=== PATIENT | male | born 1985 | race American Indian/Alaskan Native ===

== ENCOUNTER 2017-06-02 22:06 | Emergency (ER) | payer SELFPAY ==
[2017-06-02] MEDS ORDERED: TYLENOL ONE (22:38)
[2017-06-02] MEDS ORDERED: TYLENOL PO ONE (22:45)
[2017-06-03 01:43] VITALS: BP 133/87
--- NOTE | 2017-06-03 02:39 | Emergency Department Report ---
Upper Extremity - HPI Chief Complaint: Pain General Stated Complaint: TOOTHACHE, JAW PAIN, BROKEN WRIST Time Seen by Provider: 06/03/17 02:01 Upper Extremity: Left Hand (left hand pain 10 days after striking a punching bag but struck the door instead. ) Occurred When: >5 Days (10 days) Mechanism: Hit with Object Severity: mild (4/10) Symptoms: Yes Pain with Movement (to left hand), Yes Limited Range of Movement ( left hand), Yes Swelling (left hand), Yes Bruising/Ecchymosis (left hand), No Deformity, No Numbness, No Weakness, No Laceration or Abrasion Other History: Patient he reports that he is having left hand pain after trying to hit a punching bag and he hit a metal door instead. He reports pain is 4/ 10. Denies any numbness or tingling. Pain is achy and throbbing. Denies any loss of sensation to his left hand. Denies any radiation of pain from left hand. Patient is also complaining of right facial swelling 1 week with right upper toothache 4/10. Patient said he has a bad tooth to his right upper back area and he does not have a dentist. He said he took Tylenol but it doesn't help. Denies any fever or chills, denies any cough, denies any sore throat or drooling. Denies any difficulty swallowing. Patient reports that it hurts is right facial area when he talks. He reports it's difficult to eat because it hurts. Blood pressure is 144/104 and he denies any history of high blood pressure or any medical problems. ED Review of Systems ROS: Stated complaint: TOOTHACHE, JAW PAIN, BROKEN WRIST Other details as noted in HPI Comment: All other systems reviewed and negative Constitutional: denies: chills, fever ENT: dental pain, other (right facial swelling). denies: ear pain, throat pain , congestion Respiratory: no symptoms reported Cardiovascular: denies: chest pain, palpitations, edema, syncope Gastrointestinal: denies: abdominal pain, nausea, vomiting Musculoskeletal: joint swelling, arthralgia. denies: back pain, myalgia Skin: denies: rash Neurological: denies: headache, weakness, numbness, paresthesias, confusion, abnormal gait, vertigo ED Past Medical Hx - Past Medical History Previous Medical History?: No - Surgical History Past Surgical History?: No - Family History Family history: no significant - Social History Smoking Status: Current Every Day Smoker Substance Use Type: Alcohol Other Social History: Patient is single - Medications Home Medications: Home Medications Medication Instructions Recorded Confirmed Last Taken Type Acetaminophen/Codeine [Tylenol 1 tab PO Q6H PRN #15 tab 06/03/17 Unknown Rx /Codeine # 3 tab] Clindamycin [Clindamycin CAP] 300 mg PO Q8H #30 cap 06/03/17 Unknown Rx Ibuprofen [Motrin] 600 mg PO Q8H PRN #15 tablet 06/03/17 Unknown Rx Upper Extremity Exam - Exam General: Vital signs noted. No distress. Alert and acting appropriately. This is a 31-year-old male well-nourished well-developed in no acute distress. Head and Torso: No HEENT Abnormality (normal examination except patient with right facial swelling tender to palpate. Noted cellulitic area around tooth #1 and 2. No erythematous facial swelling. Tender to palpate right facial area. Patient is able to speak clearly. He is able to open his mouth but he says it' s painful to his right face. Multiple dental caries noted with gingivitis), No Neck Tenderness (supple, full range of motion, no C-spine tenderness. no adenopathy), No Chest/Lungs Abnormality (clear to auscultation bilaterally, no rhonchi wheezes or rales), No Abdominal Tenderness (nontender to palpation in all quadrants, normal bowel sounds.), No Back Tenderness (no vertebral or paraspinal tenderness. Full range of motion.) Shoulder Exam: Yes Normal Range of Motion in Shoulder, No Shoulder Tenderness, No Clavicle Tenderness, No Shoulder Deformity, No AC Joint Tenderness Arm Exam: No Arm/Humerus Tenderness, No Arm Deformity Elbow: Yes Normal Range of Motion in Elbow, No Elbow Tenderness, No Elbow Deformity Forearm: No Forearm Tenderness, No Forearm Deformity, No Pain with Pronation, No Pain with Supination Wrist: Yes Normal ROM in Wrist, No Wrist Tenderness, No Wrist Deformity, No Snuffbox Tenderness, No Pain with Axial Thumb Compression Hand: Yes Hand Tenderness (proximal metacarpal bone area at fourth and fifth), Yes Normal ROM in Digit(s) (patient with full range of motion to hand and wrist and all fingers. He said his hurts to the dorsal aspect of his hand when he closes his fist), No Hand Deformity, No Digit Tenderness, No Digit(s) Deformity , No Tendon Dysfunction CMS Exam: Yes Normal Distal Pulses, Yes Normal Capillary Refill, Yes Normal Distal Sensation, No Broken Skin (mild swelling, with bruising to proximal fourth and fifth metacarpal bone area) ED Course Vital Signs 06/02/17 06/03/17 22:35 01:41 Temperature 98.5 F Pulse Rate 105 H 91 H Respiratory 20 18 Rate Blood Pressure 144/104 133/87 [Right] O2 Sat by Pulse 100 100 Oximetry - Reevaluation(s) Reevaluation #1: 06/03/17 04:06 Patient given Percocet 5/325 2 tablets emergency room to manage pain. Prior to that he was given Tylenol 650 mg in triage area. After Percocet, patient was released with pain. - Orthopedic Splinting/Casting Injury #2 Side: left Upper Extremity Injury Location: hand Upper Extremity Immobilizer: sling/shoulder immobilize, ulnar gutter Additional Comments: Patient with good color, movement, temperature and sensation to fingers of left hand after splint placement. Neurovascular intact post splint placement ED Medical Decision Making - Radiology Data Radiology results: report reviewed X-ray of left hand reveals traumatic fractures of the proximal fourth and fifth metacarpals. Periosteal reaction is noted, suggested healing fracture. Patient states that he injured his left hand 10 days ago - Medical Decision Making ED course: Patient presents to emergency room with complaint of left hand pain and swelling and limited range of motion he was found to have fracture of proximal fourth and fifth metacarpal bone. Patient has no neurovascular compromise .ulnar gutter splint placed and he is neurovascular intact after splint placement. Patient also complaining of right facial swelling with toothache to his right upper tooth 1 week and he was found to have oral cellulitis, gingivitis and multiple dental caries. Patient was given clindamycin 600 mg IM in emergency room along with Percocet 5/325 mg by mouth. I discussed with patient his diagnosis and treatment plan and I told him that he will need to follow up with orthopedic doctor for fracture of his hand and to dentist to manage infection in his mouth. Procedure: OCL ulnar gutter splint placed to left hand fracture. Assessment/plan 1: Toothache 2: Oral cellulitis 3: Dental caries 4: Gingivitis 5: Fracture, fourth and fifth metacarpal bone [id number] report suggests areas healing. Patient 10 days out with injury 6. Arthralgia right hand Referred to Dr. Harmon orthopedic doctor for fracture of his fourth and fifth metacarpal bone Patient referred to [facility] for oral cellulitis, dental caries, gingivitis. Vital signs had stabilized Patient given prescription for Tylenol 3 and Motrin, clindamycin for oral cellulitis and toothache and also to manage pain Critical care attestation.: If time is entered above; I have spent that time in minutes in the direct care of this critically ill patient, excluding procedure time. ED Disposition Clinical Impression: Cellulitis of oral soft tissues, Toothache, Arthralgia of hand, left, Fracture of metacarpal bone of left hand, Dental caries, Gingivitis Disposition: TO HOME OR SELFCARE Is pt being admited?: No Does the pt Need Aspirin: No Condition: Stable Instructions: Hand Fracture (ED), Boxer Fracture (ED), Splint Care (ED), Arthralgia (ED), Dental Caries (ED), Dental Abscess (ED), Toothache (ED), Gingivitis (ED) Additional Instructions: Please follow up at [facility] as instructed to manage her dental problems Please follow up with orthopedic doctor, Dr. Harmon to manage your hand fracture Tylenol 3 will make you drowsy, so please do not drive or operate heavy machinery while taking this medication. Take antibiotics as instructed Follow-up instructions on splint care and please do not remove splint or get splint wet until seen by orthopedic doctor for further instructions Prescriptions: Acetaminophen/Codeine [Tylenol /Codeine # 3 tab] 1 tab PO Q6H PRN #15 tab PRN Reason: Toothache Clindamycin [Clindamycin CAP] 300 mg PO Q8H #30 cap Ibuprofen [Motrin] 600 mg PO Q8H PRN #15 tablet PRN Reason: Pain Referrals: [facility] [Outside] - 3-[address] [facility] [Outside] - 06/05/17 MELO HARMON MD [Staff Physician] - 06/05/17 Forms: Work/School Release Form(ED), Accompanied Note
--- NOTE | 2017-06-03 03:10 | XRay Report ---
FINAL REPORT EXAM: XR HAND 3+V LT HISTORY: Left hand, Impact, Pain, Get Report TECHNIQUE: Left hand three views 3 images PRIORS: None. FINDINGS: Bone mineralization appears within normal limits. There is the transverse fracture of the proximal 5th metacarpal. There appears to be slight palmar angulation associated with this. There is periosteal reaction adjacent to the fracture. There is a minimally displaced fracture of proximal 4th metacarpal with associated periosteal reaction. No gross abnormality is seen in the soft tissues. IMPRESSION: 1. Traumatic fractures of the proximal 4th and 5th metacarpals. Periosteal reaction is noted, suggesting healing fracture. There are currently no studies available for direct comparison.
[2017-06-03] MEDS ORDERED: CLEOCIN PO ONE (03:12)
[2017-06-03] MEDS ORDERED: PERCOCET 5/325 PO ONE (03:12)
== END 2017-06-03 04:28 | disposition home or self-care (01) ==
LOC: ED 22:06
DX: S62.395A Other fracture of fourth metacarpal bone, left hand, initial encounter for closed fracture (principal); S62.397A Other fracture of fifth metacarpal bone, left hand, initial encounter for closed fracture; K12.2 Cellulitis and abscess of mouth; K02.9 Dental caries, unspecified; K05.10 Chronic gingivitis, plaque induced; F17.210 Nicotine dependence, cigarettes, uncomplicated; W22.8XXA Striking against or struck by other objects, initial encounter; Y93.89 Activity, other specified; Y92.89 Other specified places as the place of occurrence of the external cause; Y99.8 Other external cause status
CPT/HCPCS: 99283